=== PATIENT | male | born 1965 | race Caucasian/White ===

== ENCOUNTER 2020-12-07 18:01 | Emergency (ER) | payer OTHER, SELFPAY ==
--- NOTE | ~2020-12-07 | XR_ITS ---
XR wrist LT min 3V DATE: 12/07/2020 19:01 INDICATION: Fall. Generalized left wrist pain TECHNIQUE: 4 views COMPARISON: None FINDINGS: Mild osteoarthritis at the first carpometacarpal joint. No fracture or dislocation, periosteal reaction or bone destruction. 

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
--- NOTE | ~2020-12-07 | XR_ITS ---
XR knee LT 3V DATE: 12/07/2020 19:01 INDICATION: Fall. Lateral knee pain TECHNIQUE: 3 views COMPARISON: None FINDINGS: There is mild suprapatellar knee joint effusion. There is anterior knee soft tissue swelling. Mild superior pole patellar enthesopathy at the quadriceps tendon insertion site. There is a linear lucency of the lateral tibial plateau strongly suggesting a nondisplaced lateral ti bial plateau fracture. IMPRESSION: Nondisplaced nondepressed lateral tibial plateau fracture, associated knee joint effusion Reviewed, dictated and finalized at location A. IMPRESSION: Nondisplaced nondepressed lateral tibial plateau fracture, associat ed knee joint effusion
[2020-12-07 18:34] VITALS: BP 167/92; PULSE 100; RESP 18; TEMP 37; O2SAT 93
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
[2020-12-07] MEDS: HYDROcodone/acetaminophen (*CRX) 5-325 MG TABLET 1 TAB PO (20:19)
[2020-12-07] MEDS: Please add drug allergy info to patient profile. 1 EACH XX (20:19)
== END 2020-12-07 20:50 | disposition home or self-care (01) ==
PROVIDERS: Emergency Provider Family Medicine
DX: S82.145A Nondisplaced bicondylar fracture of left tibia, initial encounter for closed fracture (principal); S69.92XA Unspecified injury of left wrist, hand and finger(s), initial encounter; E66.9 Obesity, unspecified; Z68.35 Body mass index [BMI] 35.0-35.9, adult; M19.032 Primary osteoarthritis, left wrist; V04.00XA Pedestrian on foot injured in collision with heavy transport vehicle or bus in nontraffic accident, initial encounter
CPT/HCPCS: 73110; 73562; 73700; 99284; A9270